=== PATIENT | female | born 1990 | race African-American/Black ===

== ENCOUNTER 2024-12-07 15:22 | Emergency (ER) | payer OTHER | END 2024-12-07 16:42 | disposition home or self-care (01) | LOC: CSHERS 15:22 | DX: M79.89 Other specified soft tissue disorders (principal); R21 Rash and other nonspecific skin eruption; I10 Essential (primary) hypertension | CPT/HCPCS: 99283 ==

== ENCOUNTER 2025-11-21 14:20 | Emergency (ER) | payer OTHER, SELFPAY | END 2025-11-21 16:30 | disposition home or self-care (01) | LOC: CSHERS 14:20 | DX: M79.605 Pain in left leg (principal); M79.89 Other specified soft tissue disorders; I10 Essential (primary) hypertension ==